=== PATIENT | male | born 1960 | race Caucasian/White ===

== ENCOUNTER 2017-02-05 08:49 | Emergency (ER) | payer BC ==
[2017-02-05] MEDS ORDERED: LACTATED RINGERS 1,000 ML IVS ONE ×2 (08:54→12:30)
[2017-02-05] MEDS ORDERED: PANTOPRAZOLE SODIUM IV 40 MG VIAL IV ONE (08:54)
[2017-02-05] MEDS ORDERED: ONDANSETRON INJ 4 MG/2 ML VIAL IV ONE (08:54)
--- NOTE | 2017-02-05 08:56 | ED.PDOC ---
History of Present Illness - General Chief Complaint: Abdominal Pain Stated Complaint: Nausea, vomiting, abd pain Time Seen by Provider: 02/05/17 08:53 Information Source: patient, RN notes reviewed, Vital Signs reviewed, family Exam Limitations: no limitations Additional Information: Pt reports abdominal cramping, melena, N/V, weakness, and hematemesis x 1 days. He reports drinking 6 beers/day and he is a smoker. He was recently diagnosed with HTN but he has not been able to purchase the antihypertensive medicine. Pt lives with girlfriend who is at the bedside. Pt is alert and interactive but appears to be in mild distress. - History of Present Illness Abdominal Pain Onset Location: generalized abdomen Pain Radiation: no radiation Quality: moderate Timing/Duration: 7-24 hours Improving Factors: nothing Worsening Factors: nothing Associated Symptoms: other - melena, hematemeis Review of Systems - Review of Systems Constitutional: States: weakness EENTM: States: no symptoms reported Respiratory: States: no symptoms reported Cardiology: States: no symptoms reported Gastrointestinal/Abdominal: States: see HPI, abdominal pain, vomiting Genitourinary: States: no symptoms reported Musculoskeletal: States: no symptoms reported Skin: States: no symptoms reported Neurological: States: no symptoms reported Endocrine: States: no symptoms reported Hematologic/Lymphatic: States: no symptoms reported Family Medical History - Family History Mother Family History: Unknown Physical Exam - Physical Exam General Appearance: Comfortable - lying supine, but weak when standing Eyes, Ears, Nose, Throat Exam: PERRL/EOMI, normal ENT inspection Neck: non-tender, full range of motion, supple Respiratory: no respiratory distress Cardiovascular/Chest: tachycardia Gastrointestinal/Abdominal: non tender, soft Rectal Exam: black stool Back Exam: normal inspection Extremity: normal range of motion, non-tender, normal inspection Neurologic: hospital internship II-XII nml as tested, no motor/sensory deficits, alert, normal mood/affect, oriented x 3 Skin Exam: normal color Progress - Progress Progress: 02/05/17 10:19 Pt states he feels better s/p Protonix 80 mg IV x1, LR 1 liters x 1, and Zofran 4 mg IV x 1. Initial labs not very concerning - suggestive of mild GI bleed. Will reassess labs for interval change. If relatively stable, will plan for d/c home with Rx for PPI and Zofran. 02/05/17 12:34 Labs and orthostatics consistent with GI bleed - stable. Patient will need transfer to facility with Endoscopist and ICU available. 02/05/17 12:35 [facility] who [facility]. - Results/Orders Results/Orders: 02/05/17 09:23 TYPE AND SCREEN Stat 02/05/17 12:30 BOLUS Lactated Ringers [Lr] 1,000 ml IVS ONCE Laboratory Results - last 24 hr 02/05/17 02/05/17 02/05/17 09:00 09:23 09:23 WBC RBC Hgb Hct MCV MCH MCHC RDW Plt Count MPV Absolute Neuts (auto) Absolute Lymphs (auto) Absolute Monos (auto) Absolute Eos (auto) Absolute Basos (auto) Neutrophils % Lymphocytes % Monocytes % Eosinophils % Basophils % PT 11.4 INR 1.010 PTT (SP) 27.3 Sodium 141 Potassium 4.2 Chloride 108 Carbon Dioxide 23 Anion Gap 14.2 BUN 52 H Creatinine 1.05 BUN/Creatinine Ratio 49.5 H Random Glucose 153 H Serum Osmolality 298.3 H Lactic Acid Calcium 8.7 Total Bilirubin 0.3 AST 14 ALT 14 Alkaline Phosphatase 54 Serum Total Protein 5.9 L Albumin 3.3 Globulin 2.6 Albumin/Globulin Ratio 1.3 Stool Occult Blood Positive 02/05/17 02/05/17 02/05/17 09:23 09:23 10:31 WBC 12.9 H 11.4 H RBC 3.53 L 3.07 L Hgb 11.0 L 9.6 L Hct 32.3 L 27.9 L MCV 91.4 91.1 MCH 31.1 H 31.2 H MCHC 34.0 34.4 RDW 13.1 12.9 Plt Count 284 258 MPV 9.6 9.3 Absolute Neuts (auto) 9.60 H 8.90 H Absolute Lymphs (auto) 2.40 1.80 Absolute Monos (auto) 0.80 0.60 Absolute Eos (auto) 0.00 0.00 Absolute Basos (auto) 0.10 0.10 Neutrophils % 74.4 78.2 H Lymphocytes % 18.9 L 15.6 L Monocytes % 5.9 5.5 Eosinophils % 0.2 L 0.2 L Basophils % 0.6 0.5 PT INR PTT (SP) Sodium Potassium Chloride Carbon Dioxide Anion Gap BUN Creatinine BUN/Creatinine Ratio Random Glucose Serum Osmolality Lactic Acid 3.2 H* Calcium Total Bilirubin AST ALT Alkaline Phosphatase Serum Total Protein Albumin Globulin Albumin/Globulin Ratio Stool Occult Blood 02/05/17 02/05/17 02/05/17 10:31 11:58 11:58 WBC 11.6 H RBC 3.06 L Hgb 9.6 L Hct 27.8 L MCV 90.9 MCH 31.3 H MCHC 34.7 RDW 13.1 Plt Count 271 MPV 9.1 Absolute Neuts (auto) 8.60 H Absolute Lymphs (auto) 2.30 Absolute Monos (auto) 0.60 Absolute Eos (auto) 0.00 Absolute Basos (auto) 0.10 Neutrophils % 74.4 Lymphocytes % 19.6 L Monocytes % 5.3 Eosinophils % 0.2 L Basophils % 0.5 PT INR PTT (SP) Sodium Potassium Chloride Carbon Dioxide Anion Gap BUN Creatinine BUN/Creatinine Ratio Random Glucose Serum Osmolality Lactic Acid 2.7 H* 1.8 Calcium Total Bilirubin AST ALT Alkaline Phosphatase Serum Total Protein Albumin Globulin Albumin/Globulin Ratio Stool Occult Blood 02/05/17 02/05/17 02/05/17 08:56 09:45 10:30 Temperature 97.3 F L Pulse Rate [ 106 H 78 109 H pulse ox] Respiratory 20 18 20 Rate Blood Pressure 140/94 95/71 108/59 [Right Arm] O2 Sat by Pulse 100 100 100 Oximetry 02/05/17 11:05 Temperature Pulse Rate [ 125 H pulse ox] Respiratory Rate Blood Pressure 84/63 [Right Arm] O2 Sat by Pulse Oximetry Departure - Departure Clinical Impression: GI bleed Qualifiers: GI bleed type/associated pathology: melena Qualified Code(s): K92.1 - Melena Time of Disposition: 12:45 Disposition: Transfer to Hospital Condition: Fair Departure Forms: ED Discharge - Pt. Copy, Patient Portal Self Enrollment Instructions: DI for Abdominal Pain-Adult Referrals: UNKNOWN,PHYSICIAN [Primary Care Provider] - 1-2 Weeks Home Medications: Ambulatory Orders NK [NK] 02/05/17 Transfer to Outside Facility - Transfer Information Accepting Provider:: Dr. Esteban Accepting Facility: [facility] Reason for Transfer: required specialist not available - GI - Endoscopist
[2017-02-05 09:18] VITALS: TEMP 97.3; O2SAT 100
[2017-02-05] MEDS ORDERED: SODIUM CHLORIDE 0.9% 50ML 50 ML ONE (09:20)
[2017-02-05 13:34] VITALS: BP 111/71
== END 2017-02-05 13:07 | disposition short-term general hospital (02) ==
LOC: ER 08:49
DX: K92.1 Melena (principal); R10.84 Generalized abdominal pain; R11.2 Nausea with vomiting, unspecified; K92.0 Hematemesis; I10 Essential (primary) hypertension
CPT/HCPCS: 36415; 80053; 82270; 83605; 85025; 85610; 85730; A4216; J2405; J7120

== ENCOUNTER → 2018-09-04 | Outpatient (CLI) | payer BC ==
--- NOTE | 2018-09-04 10:25 | RAD ---
EXAM DESCRIPTION: Shoulder,Left 2 or More Views CLINICAL HISTORY: Degenerative joint disease of shoulder pain COMPARISON: None Available. TECHNIQUE: Two views of the left shoulder. FINDINGS: No displaced fracture or dislocation of the shoulder. The alignment of the acromioclavicular and glenohumeral joints are intact. Minimal acromioclavicular and glenohumeral joints osteoarthrosis is present with subchondral sclerosis, and marginal osteophyte formation. There is good internal and external rotation. IMPRESSION: 1. No acute osseous abnormality. Electronically signed by: Demetrius Brito DO 09/04/2018 10:24 AM CDT
== END ==
LOC: RAD 09:53
PROVIDERS: ATTEND Nurse Practitioner Family
DX: M19.019 Primary osteoarthritis, unspecified shoulder (principal)

== ENCOUNTER 2018-12-18 07:25 | Emergency (ER) | payer BC ==
[2018-12-18] MEDS ORDERED: ALPRAZolam 0.25 MG TAB PO ONE (07:37)
--- NOTE | 2018-12-18 07:41 | ED.PDOC ---
History of Present Illness - General Chief Complaint: General Stated Complaint: Dizziness, feeling ill Time Seen by Provider: 12/18/18 07:27 Source: patient Exam Limitations: no limitations - History of Present Illness Initial Comments: the patient is a 58-year-old male presenting to the emergency room after having developed acute dizziness while working this morning. He woke up feeling fine. He does feel a little short of breath. No chest pain. No history of any coronary artery disease or pulmonary emboli. No history of any acute aortic pathologies. The patient does have a history of smoking. He does take a blood pressure and a cholesterol medicine. He is alert and oriented though he does appear a little unfocused. There may be a little facial asymme try with a little decreased facial movement on the right. He does appear to move all extremities well. He knows where he isn't what is going on. He is obviously anxious. He is hyperventilating currently. He did not pass out. He did not fall. Timing/Duration: other - 30 minutes Severity: moderate Improving Factors: nothing Worsening Factors: nothing Associated Symptoms: malaise, shortness of breath Allergies/Adverse Reactions: Allergies NO KNOWN ALLERGY Allergy (Verified 02/05/17 09:12) Home Medications: Ambulatory Orders Cyclobenzaprine HCl [Flexeril] 10 mg PO BEDTIME 12/18/18 Hydrochlorothiazide 25 mg PO DAILY 12/18/18 Lisinopril & Hydrochlorothiazi [Lisinopril/Hctz 10-12.5 mg] 1 tab PO DAILY 12/18/18 Lovastatin 40 mg PO BEDTIME 12/18/18 predniSONE [Prednisone] 20 mg PO DAILY #5 tab 12/18/18 Review of Systems - Review of Systems Constitutional: States: malaise, weakness - generalized EENTM: States: other - he reports that his vision is a little bit blurry until he focuses on something. Respiratory: States: short of breath Cardiology: States: no symptoms reported Gastrointestinal/Abdominal: States: no symptoms reported Genitourinary: States: no symptoms reported Musculoskeletal: States: no symptoms reported Skin: States: no symptoms reported Neurological: States: see HPI, anxiety Endocrine: States: no symptoms reported Hematologic/Lymphatic: States: no symptoms reported All other Systems: No Change from Baseline Past Medical History (General) - Patient Medical History Hx Stroke: No Hx Cardiac Disorders: Yes - Hypercholesterolemia Hx Congestive Heart Failure: No Hx Hypertension: Yes Hx Diabetes: No - Vaccination History Hx Influenza Vaccination: No Hx Pneumococcal Vaccination: No - Social History Hx Tobacco Use: Yes Hx Alcohol Use: Yes - Occasional use - Triage Comment ED Triage Comment: BS on arrival 119. Family Medical History - Family History Mother Family History: Unknown Physical Exam - Physical Exam General Appearance: Alert, Anxious Eye Exam: bilateral normal - no obvious abnormal nystagmus. Pupils are reactive bilaterally and symmetrical. Extraocular movements are intact. Ears, Nose, Throat: hearing grossly normal Neck: non-tender, full range of motion Respiratory: chest non-tender, lungs clear, normal breath sounds, other - he is hyperventilating. Cardiovascular/Chest: normal peripheral pulses, no edema, other - elemetry shows sinus rhythm with occasional PVCs or fusion complexes Peripheral Pulses: radial,right: 2+, radial,left: 2+ Gastrointestinal/Abdominal: non tender, soft Rectal Exam: deferred Back Exam: no CVA tenderness, no vertebral tenderness Extremity: normal range of motion, non-tender, normal inspection, no pedal edema, normal capillary refill Neurologic: alert, oriented x 3 - poor focus. He does appear to have possibly some mild neglect to what is going on in his right side. 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 rest of exam wnl. , other - possible mild right sided facial droop. This may however be long- standing. Skin Exam: normal color Comments: Vital Signs - 24 hr 12/18/18 07:25 Temperature 96.9 F L Pulse Rate [ 86 Right Radial] Respiratory 22 Rate Blood Pressure 126/85 [Left Arm] O2 Sat by Pulse 100 Oximetry Progress - Progress Progress: 12/18/18 08:33 additional information obtained shows a lactic acid of 3.9. The patient is being given a liter of IV fluids. The mild facial asymmetry is apparently long- standing. 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 Head CT is reassuring. Acute abdominal series is reassuring. Numerous labs are still pending. I discussed the findings so far with the patient and his . He is breathing much more easily. 12/18/18 08:34 the patient is presenting with what appears to be an episode of vertigo and anxiety related to it. the patient does have some dehydration which was corrected with normal saline. He also had low magnesium level which was supplemented. Head CT was reassuring. Symptoms appear to have significantly improved. Head impulse testing seem to lateralize to the left indicating a likely labyrinthitis. The patient be placed on prednisone 20 mg daily for 5 days. He needs to keep himself well hydrated. Obviously avoid any illicit drug use. He needs to ambulate carefully for the next few days as he will likely have some mild persistent dizziness. He needs to follow back up with his primary care doctor early this coming week. the patient does also need to discontinue the hydrochlorothiazide. 12/18/18 10:24 12/18/18 10:25 - Results/Orders Results/Orders: EKG shows normal sinus rhythm at 90 bpm with occasional PVCs or fusion complexes. Right axis deviation. Borderline criteria for ventricular hypertrophy. Left atrial dilation. Prolonged QT interval. Slow R-wave transition in anterior leads. No definitive ST segment or T-wave changes indicative of acute ischemia. Laboratory Tests 12/18/18 12/18/18 12/18/18 07:30 07:45 07:45 WBC RBC Hgb Hct MCV MCH MCHC RDW Plt Count MPV Absolute Neuts (auto) Absolute Lymphs (auto) Absolute Monos (auto) Absolute Eos (auto) Absolute Basos (auto) Neutrophils % Lymphocytes % Monocytes % Eosinophils % Basophils % PT INR PTT (SP) D-Dimer, Quantitative Sodium 137 Potassium 4.2 Chloride 101 Carbon Dioxide 23 Anion Gap 17.2 BUN 13 Creatinine 0.88 BUN/Creatinine Ratio 14.8 POC Glucose 119 H Random Glucose 125 H Serum Osmolality 275.4 Lactic Acid 3.9 H* Calcium 9.6 Magnesium Total Bilirubin 0.5 AST 23 ALT 24 Alkaline Phosphatase 66 Creatine Kinase 79 CK-MB (CK-2) 4.7 H* CK-MB (CK-2) % Not Reportable Troponin I < 0.02 B-Natriuretic Peptide 14.6 Serum Total Protein 6.9 Albumin 4.2 Globulin 2.7 Albumin/Globulin Ratio 1.6 TSH Urine Color Urine Appearance Urine pH Ur Specific [place] Urine Protein Urine Glucose (UA) Urine Ketones Urine Blood Urine Nitrite Urine Bilirubin Urine Urobilinogen Ur Leukocyte Esterase Urine RBC Urine WBC Ur Epithelial Cells Urine Bacteria Urine Mucus Urine Opiates Screen Urine Barbiturates Ur Phencyclidine Scrn U Amphetamin/Meth Scrn U Benzodiazepines Scrn U Cocaine Metab Screen U Cannabinoids Screen 12/18/18 12/18/18 12/18/18 07:45 07:45 07:45 WBC 10.0 RBC 4.80 Hgb 14.7 Hct 42.7 MCV 89.0 MCH 30.6 MCHC 34.4 RDW 13.1 Plt Count 277 MPV 10.1 Absolute Neuts (auto) 6.80 Absolute Lymphs (auto) 2.50 Absolute Monos (auto) 0.60 Absolute Eos (auto) 0.10 Absolute Basos (auto) 0.10 Neutrophils % 67.6 Lymphocytes % 24.5 Monocytes % 5.9 Eosinophils % 1.3 Basophils % 0.7 PT 9.4 INR 0.94 PTT (SP) 24.6 D-Dimer, Quantitative 0.32 Sodium Potassium Chloride Carbon Dioxide Anion Gap BUN Creatinine BUN/Creatinine Ratio POC Glucose Random Glucose Serum Osmolality Lactic Acid Calcium Magnesium 1.6 L Total Bilirubin AST ALT Alkaline Phosphatase Creatine Kinase CK-MB (CK-2) CK-MB (CK-2) % Troponin I B-Natriuretic Peptide Serum Total Protein Albumin Globulin Albumin/Globulin Ratio TSH 1.66 Urine Color Urine Appearance Urine pH Ur Specific [place] Urine Protein Urine Glucose (UA) Urine Ketones Urine Blood Urine Nitrite Urine Bilirubin Urine Urobilinogen Ur Leukocyte Esterase Urine RBC Urine WBC Ur Epithelial Cells Urine Bacteria Urine Mucus Urine Opiates Screen Urine Barbiturates Ur Phencyclidine Scrn U Amphetamin/Meth Scrn U Benzodiazepines Scrn U Cocaine Metab Screen U Cannabinoids Screen 12/18/18 12/18/18 09:35 09:35 WBC RBC Hgb Hct MCV MCH MCHC RDW Plt Count MPV Absolute Neuts (auto) Absolute Lymphs (auto) Absolute Monos (auto) Absolute Eos (auto) Absolute Basos (auto) Neutrophils % Lymphocytes % Monocytes % Eosinophils % Basophils % PT INR PTT (SP) D-Dimer, Quantitative Sodium Potassium Chloride Carbon Dioxide Anion Gap BUN Creatinine BUN/Creatinine Ratio POC Glucose Random Glucose Serum Osmolality Lactic Acid Calcium Magnesium Total Bilirubin AST ALT Alkaline Phosphatase Creatine Kinase CK-MB (CK-2) CK-MB (CK-2) % Troponin I B-Natriuretic Peptide Serum Total Protein Albumin Globulin Albumin/Globulin Ratio TSH Urine Color Yellow Urine Appearance Clear Urine pH 7.5 Ur Specific [place] 1.020 Urine Protein Negative Urine Glucose (UA) Negative Urine Ketones Negative Urine Blood Negative Urine Nitrite Negative Urine Bilirubin Negative Urine Urobilinogen 0.2 Ur Leukocyte Esterase Negative Urine RBC 0 Urine WBC 0-1 Ur Epithelial Cells 0 Urine Bacteria 0 Urine Mucus Trace Urine Opiates Screen Negative Urine Barbiturates Negative Ur Phencyclidine Scrn Negative U Amphetamin/Meth Scrn Positive H U Benzodiazepines Scrn Negative U Cocaine Metab Screen Negative U Cannabinoids Screen Negative head CT shows no acute changes. He does have a maxillary sinus cyst. acute abdominal series shows constipation. Departure - Departure Clinical Impression: Vertigo, Acute vestibular neuronitis of left ear, Dehydration, Hypomagnesemia Disposition: Discharge to Home or Self Care Condition: Fair Departure Forms: ED Discharge - Pt. Copy, Patient Portal Self Enrollment Diet: regular diet Activity: increase activity as tolerated Referrals: Francesca Marinelli NP [Primary Care Provider] - 1-5 Days Prescriptions: predniSONE [Prednisone] 20 mg PO DAILY #5 tab Home Medications: Ambulatory Orders Cyclobenzaprine HCl [Flexeril] 10 mg PO BEDTIME 12/18/18 Hydrochlorothiazide 25 mg PO DAILY 12/18/18 Lisinopril & Hydrochlorothiazi [Lisinopril/Hctz 10-12.5 mg] 1 tab PO DAILY 12/18/18 Lovastatin 40 mg PO BEDTIME 12/18/18 predniSONE [Prednisone] 20 mg PO DAILY #5 tab 12/18/18 Additional Instructions: the patient is presenting with what appears to be an episode of vertigo and anxiety related to it. the patient does have some dehydration which was corrected with normal saline. He also had low magnesium level which was supplemented. Head CT was reassuring. Symptoms appear to have significantly improved. Head impulse testing seem to lateralize to the left indicating a likely labyrinthitis. The patient be placed on prednisone 20 mg daily for 5 days. He needs to keep himself well hydrated. Obviously avoid any illicit drug use. He needs to ambulate carefully for the next few days as he will likely have some mild persistent dizziness. He needs to follow back up with his primary care doctor early this coming week. the patient does also need to discontinue the hydrochlorothiazide.
[2018-12-18] MEDS ORDERED: MECLIZINE HCL 12.5 MG TAB PO ONE (07:48)
[2018-12-18] MEDS ORDERED: SODIUM CHLORIDE 0.9% 1000ML 1,000 ML IVS ONE (08:18)
--- NOTE | 2018-12-18 08:21 | CT ---
EXAM DESCRIPTION: CT-Head CLINICAL HISTORY: acute dizziness, confusion COMPARISON: None available TECHNIQUE: Multiple axial images of the head without contrast. Multiplanar reformatted images. This exam was performed according to our departmental dose-optimization program, which includes automated exposure control, adjustment of the mA and/or kV according to patient size and/or use of iterative reconstruction technique. FINDINGS: There is no CT evidence of intracranial hemorrhage, mass effect, or large territory infarction. Mild generalized volume loss. Mild patchy supratentorial white matter hypodensities. There are no abnormal extra-axial fluid collections. Vascular structures are unremarkable. There is no acute calvarial defect. 2 cm left maxillary mucous retention cyst or polyp. The mastoid air cells are clear. IMPRESSION: 1. No CT evidence of an acute intracranial abnormality. If there is concern for an acute or subacute infarct, consider follow-up MRI. 2. Mild senescent changes. Electronically signed by: Ace Saavedra MD 12/18/2018 8:19 AM [facility]
--- NOTE | 2018-12-18 08:27 | RAD ---
EXAM DESCRIPTION: Abdomen Series CLINICAL HISTORY: 58 years Male, acute dizziness, confusion COMPARISON: None. TECHNIQUE: PA chest with acute abdominal series. FINDINGS: CHEST: The trachea appears midline. The cardiomediastinal silhouette is within normal limits. The pulmonary vasculature appears unremarkable. No acute consolidation or pleural effusion. ABDOMEN: Multiple air distended bowel loops are noted scattered throughout the abdomen with gas in the distal rectum suggesting a nonobstructive bowel gas pattern. No evidence of air-fluid levels or air under the domes of diaphragm. Significant fecal burden is noted in the colon. No abnormal calcifications identified. IMPRESSION: 1. Nonobstructive bowel gas pattern. 2. Significant stool burden in the colon. Electronically signed by: Celestino Gates MD 12/18/2018 8:25 AM [facility]
[2018-12-18] MEDS ORDERED: MAGNESIUM SULFATE PREMIX 2GM 2 GM in PREMIX BAG 1 BAG IVPB ONE (09:11)
[2018-12-18] MEDS ORDERED: MAGNESIUM SULFATE PREMIX 2GM 50 ML IVPB ONE (09:39)
[2018-12-18 10:56] VITALS: BP 118/78; TEMP 97.1; O2SAT 99
== END 2018-12-18 10:47 | disposition home or self-care (01) ==
LOC: ER 07:25
DX: R42 Dizziness and giddiness (principal); H81.22 Vestibular neuronitis, left ear; E83.42 Hypomagnesemia; E86.0 Dehydration; R06.4 Hyperventilation; I49.3 Ventricular premature depolarization; I10 Essential (primary) hypertension; E78.00 Pure hypercholesterolemia, unspecified; Z87.891 Personal history of nicotine dependence; Z79.899 Other long term (current) drug therapy
CPT/HCPCS: 36415; 70450; 74019; 80053; 80307; 81001; 82550; 82553; 82948; 83605; 83735; 83880; 84443; 84484; 85025; 85379; 85610; 85730; 93005; J3475; J7030

== ENCOUNTER → 2019-06-30 | Day surgery (SDC) | payer BC | LOC: AMB 05:35 | PROVIDERS: ATTEND Orthopaedic Surgery | DX: M75.102 Unspecified rotator cuff tear or rupture of left shoulder, not specified as traumatic (principal); F17.200 Nicotine dependence, unspecified, uncomplicated; I10 Essential (primary) hypertension; Z79.899 Other long term (current) drug therapy; Z79.1 Long term (current) use of non-steroidal anti-inflammatories (NSAID); Z53.9 Procedure and treatment not carried out, unspecified reason ==